=== PATIENT | female | born 1960 | race Caucasian/White ===

== ENCOUNTER → 2018-07-28 | Day surgery (SDC) | payer OTHER ==
[~2018-07-28] MED LIST: ABILIFY5 MG PO; ACETAMINOPHEN-1 EAC4; ADVAIR 100-501 EACH; BACLOFEN10 MG PO; CETIRIZINE HCL10 M1; CLONAZEPAM1 MG PO; COMBIVENT RESPIM4 GM IH; CYROHEPTADINE; ESTRADIOL1 MG PO; ETODOLAC500 M1; ETODOLAC500 MG; FENTANYL CITRATE/PF 100MCG/2 ML INJ ONE; FERROUS SULFAT324 MG; FUROSEMIDE40 MG PO; GABAPENTIN400 MG PO; HYOSCYAMINE SULFATE 0.5 MG/ML INJ ONE; LIDOCAINE HCL 2% LOCAL INJ 5 ML SDV VIAL INJ ONE; MIDAZOLAM HCL 2 MG/2 ML VIAL ONE; MIDODRINE HCL5 MG; POTASSIUM CHLO20 ME1; PRIMIDONE1 GM; PROAIR HFA INH8.5 GM; PROMETHAZINE HCL (IM) 25 MG/ML VIAL ONE; PROPOFOL IV EMULSION 10 MG/ML 50 ML VIAL ONE; SIMVASTATIN40 MG PO; ULTRAM50 MG PO; VESICARE5 MG PO; VITAMIN C1000 MG; [UNRECOGNIZED DRUG - OTHER]
--- OUTSIDE RECORDS SUMMARY | 2018-07-28 13:07 | XMS REPORT ---
Author Author [facility] [facility] Address Unknown Phone Unavailable Care Team Providers Care Experimental Psychologist Name Role Phone UNKNOWN, REFFERING PP Unavailable MICHAELA REED Unavailable Unavailable Payers Payer Name Policy Type Policy Number Effective Date Expiration Date Problems This patient has no known problems. Allergies, Adverse Reactions, Alerts Allergy Name Allergy Type Status Severity Reaction(s) Onset Date Inactive Date Treating Clinician Comments No Known Allergies DA Active U 2016-04-26 00:00:00 Medications This patient has no known medications. Encounters Start Date/Time End Date/Time Encounter Type Admission Type Attending [facility] Facility Care Department Encounter ID 2017-03-03 00:05:13 Inpatient [facility] [id number] 2017-03-02 00:01:40 Inpatient [facility] [id number] 2018-01-16 08:16:53 2018-01-16 08:16:53 Emergency [facility] [id number] 2018-01-16 08:00:33 2018-01-16 08:00:33 Emergency [facility] [id number] 2017-04-05 00:00:00 2017-04-05 00:00:00 Outpatient [facility] [id number] 2017-03-31 00:00:00 2017-03-31 00:00:00 Outpatient [facility] [id number] 2017-03-01 19:04:30 2017-03-01 19:04:30 Emergency [facility] [id number] 2017-03-01 18:25:35 2017-03-01 18:25:35 Emergency [facility] [id number] 2017-03-01 18:22:30 2017-03-01 18:22:30 Emergency [facility] [id number] 2017-03-01 17:13:30 2017-03-01 17:13:30 Inpatient [facility] [id number] 2017-01-09 23:01:23 2017-01-09 23:01:23 Emergency [facility] [id number] 2017-01-09 22:22:27 2017-01-09 22:22:27 Emergency [facility] [id number] 2016-11-16 15:35:29 2016-11-16 15:35:29 Emergency [facility] [id number] 2016-11-16 15:21:19 2016-11-16 15:21:19 Emergency [facility] [id number] 2016-11-16 14:09:36 2016-11-16 14:09:36 [facility] [id number] Results Test Description Test Time Test Comments Text Results Atomic Results Result Comments CBC with Differential 2016-12-06 07:55:00 WBC (test code=WBC) 22.3 K/cumm 4.4-10.5 RBC (test code=RBC) 2.88 M/cumm 3.75-5.20 Hemoglobin (test code=HGB) 8.8 gm/dL 12.2-14.8 Hematocrit (test code=HCT) 25.5 % 36.5-44.4 MCV (test code=MCV) 88.5 fL 80-100 MCH (test code=MCH) 30.6 pg 27.0-32.5 MCHC (test code=MCHC) 34.5 % 32.0-37.5 RDW (test code=RDW) 13.8 % 11.5-14.5 Platelet Count (test code=PLTCT) 579 K/cumm 140-440 MPV (test code=MPV) 9.5 fL Diff Method (test code=DIFFM) Manual Neutrophil (test code=NEUT) 90.0 % 36-70 Lymphocyte (test code=LYMPH) 6.0 % 12-44 Monocyte (test code=MONO) 4.0 % 0-11 RBC Morphology (test code=RBCMRPH) 1+ Anisocytosis 1+Hypochromia Polychromasia 1+ Ovalocytes 1+ Spherocytes1+ Tear Drops Platelet Est (test code=PLTEST) Increased Platelet on Smear Basic Metabolic [id number] 07:26:00* Test Item Value Reference Range Comments Sodium (test code=NA) 135 mmol/L 135-145 Potassium (test code=K) 3.8 mmol/L 3.5-5.1 Chloride (test code=CL) 102 mmol/L 98-105 Carbon Dioxide (test code=CO2) 23 mmol/L 22-29 Anion Gap (test code=AGAP) 10 mmol/L 7-16 Glucose (test code=GLU) 110 mg/dL 70-115 Blood Urea Nitrogen (test code=BUN) 20 mg/dL 6-20 Creatinine (test code=CREAT) 0.8 mg/dL 0.5-0.9 BUN/Creatinine Ratio (test code=BCRATIO) 25.0 Calcium (test code=CA) 9.3 mg/dL 8.3-10.5 Estimated GFR (test code=GFR) >60 mL/min/1.73m2 eGFR (estimated Glomerular Filtration Rate) is an estimated value,calculated from the patient's serum creatinine using the MDRD equation.It is NOT the patient's actual GFR. The eGFR provides a more clinicallyuseful measure of kidney disease than serum creatinine alone.This calculation takes sex and race into account, if the informationis provided. If the race is not provided, and the patient isAfrican-Japanese, multiply by 1.212. If sex is not provided, and thepatient is female, multiply by 0.742. Results for patients <18 years ofage have not been validated by the MDRD study and should be interpretedwith caution.eGFR Result Interpretation:eGFR > or=60 is in the Normal RangeeGFR < 60 may mean kidney diseaseeGFR < 15 may mean kidney failureRanges recommended by the National Kidney Foundat ion,http://nkdep.nih.gov Culture, Blood [id number] 06:32:00Specimen: BloodCollected: 11/30/2016 02:50 Status: Final Last Updated: 12/05/2016 06:32 (1) ER Bed ED6 Culture Result (Final) (Final) No Growth After 5 Days Culture, Blood Routine 2016-12-05 06:32:00Specimen: BloodCollected: 11/30/2016 02:50 Status: Final Last Updated: 12/05/2016 06:32 (1) ER Bed ED6 Culture Result (Final) (Final) No Growth After 5 Days Basic Metabolic [id number] 05:58:00* Test Item Value Reference Range Comments Sodium (test code=NA) 136 mmol/L 135-145 Potassium (test code=K) 3.6 mmol/L 3.5-5.1 Chloride (test code=CL) 102 mmol/L 98-105 Carbon Dioxide (test code=CO2) 21 mmol/L 22-29 Anion Gap (test code=AGAP) 13 mmol/L 7-16 Glucose (test code=GLU) 113 mg/dL 70-115 Blood Urea Nitrogen (test code=BUN) 16 mg/dL 6-20 Creatinine (test code=CREAT) 0.8 mg/dL 0.5-0.9 BUN/Creatinine Ratio (test code=BCRATIO) 20.0 Calcium (test code=CA) 9.4 mg/dL 8.3-10.5 Estimated GFR (test code=GFR) >60 mL/min/1.73m2 eGFR (estimated Glomerular Filtration Rate) is an estimated value,calculated from the patient's serum creatinine using the MDRD equation.It is NOT the patient's actual GFR. The eGFR provides a more clinicallyuseful measure of kidney disease than serum creatinine alone.This calculation takes sex and race into account, if the informationis provided. If the race is not provided, and the patient isAfrican-Japanese, multiply by 1.212. If sex is not provided, and thepatient is female, multiply by 0.742. Results for patients <18 years ofage have not been validated by the MDRD study and should be interpretedwith caution.eGFR Result Interpretation:eGFR > or=60 is in the Normal RangeeGFR < 60 may mean kidney diseaseeGFR < 15 may mean kidney failureRanges recommended by the National Kidney Foundat ion,http://nkdep.nih.gov CBC with [id number] 05:57:00* Test Item Value Reference Range Comments WBC (test code=WBC) 24.1 K/cumm 4.4-10.5 RBC (test code=RBC) 2.74 M/cumm 3.75-5.20 Hemoglobin (test code=HGB) 8.4 gm/dL 12.2-14.8 Hematocrit (test code=HCT) 23.7 % 36.5-44.4 MCV (test code=MCV) 86.5 fL 80-100 MCH (test code=MCH) 30.7 pg 27.0-32.5 MCHC (test code=MCHC) 35.4 % 32.0-37.5 RDW (test code=RDW) 13.5 % 11.5-14.5 Platelet Count (test code=PLTCT) 536 K/cumm 140-440 MPV (test code=MPV) 9.1 fL Diff Method (test code=DIFFM) Manual Neutrophil (test code=NEUT) 92.0 % 36-70 Bands (test code=BAND) 1.0 % 0-6 Lymphocyte (test code=LYMPH) 5.0 % 12-44 Monocyte (test code=MONO) 2.0 % 0-11 nRBC (test code=NRBC) 2 /100 WBC 0-0 RBC Morphology (test code=RBCMRPH) Not Indicated WBC Morphology (test code=WBCMRPH) Hypersegs Present Platelet Est (test code=PLTEST) Increased Platelet on Smear CBC with [id number] 07:26:00* Test Item Value Reference Range Comments WBC (test code=WBC) 21.8 K/cumm 4.4-10.5 RBC (test code=RBC) 2.84 M/cumm 3.75-5.20 Hemoglobin (test code=HGB) 8.6 gm/dL 12.2-14.8 Hematocrit (test code=HCT) 24.2 % 36.5-44.4 MCV (test code=MCV) 85.2 fL 80-100 MCH (test code=MCH) 30.3 pg 27.0-32.5 MCHC (test code=MCHC) 35.5 % 32.0-37.5 RDW (test code=RDW) 13.5 % 11.5-14.5 Platelet Count (test code=PLTCT) 516 K/cumm 140-440 MPV (test code=MPV) 9.6 fL Diff Method (test code=DIFFM) Manual Neutrophil (test code=NEUT) 89.0 % 36-70 Lymphocyte (test code=LYMPH) 2.0 % 12-44 Monocyte (test code=MONO) 6.0 % 0-11 Metamyelocyte (test code=METAMYE) 3.0 % 0-0 Neutro Abs (test code=ANEUT) 20.1 K/cumm 1.6-7.4 Lymph Abs (test code=ALYMPH) 0.7 K/cumm 0.5-4.6 Carbon Abs (test code=AMONO) 0.9 K/cumm 0.0-1.2 Eos Abs (test code=AEOS) 0.01 K/cumm 0.00-0.74 Baso Abs (test code=ABASO) 0.0 K/cumm 0.00-0.21 RBC Morphology (test code=RBCMRPH) Normal WBC Morphology (test code=WBCMRPH) Slight Toxic Granulation Platelet Est (test code=PLTEST) Increased Platelet on Smear Basic Metabolic [id number] 07:19:00* Test Item Value Reference Range Comments Sodium (test code=NA) 133 mmol/L 135-145 Potassium (test code=K) 3.8 mmol/L 3.5-5.1 Chloride (test code=CL) 101 mmol/L 98-105 Carbon Dioxide (test code=CO2) 20 mmol/L 22-29 Anion Gap (test code=AGAP) 12 mmol/L 7-16 Glucose (test code=GLU) 122 mg/dL 70-115 Blood Urea Nitrogen (test code=BUN) 9 mg/dL 6-20 Creatinine (test code=CREAT) 0.7 mg/dL 0.5-0.9 BUN/Creatinine Ratio (test code=BCRATIO) 12.9 Calcium (test code=CA) 9.1 mg/dL 8.3-10.5 Estimated GFR (test code=GFR) >60 mL/min/1.73m2 eGFR (estimated Glomerular Filtration Rate) is an estimated value,calculated from the patient's serum creatinine using the MDRD equation.It is NOT the patient's actual GFR. The eGFR provides a more clinicallyuseful measure of kidney disease than serum creatinine alone.This calculation takes sex and race into account, if the informationis provided. If the race is not provided, and the patient isAfrican-Japanese, multiply by 1.212. If sex is not provided, and thepatient is female, multiply by 0.742. Results for patients <18 years ofage have not been validated by the MDRD study and should be interpretedwith caution.eGFR Result Interpretation:eGFR > or=60 is in the Normal RangeeGFR < 60 may mean kidney diseaseeGFR < 15 may mean kidney failureRanges recommended by the National Kidney Foundat ion,http://nkdep.nih.gov CBC with [id number] 07:03:00* Test Item Value Reference Range Comments WBC (test code=WBC) 25.8 K/cumm 4.4-10.5 RBC (test code=RBC) 2.54 M/cumm 3.75-5.20 Hemoglobin (test code=HGB) 7.8 gm/dL 12.2-14.8 Hematocrit (test code=HCT) 21.4 % 36.5-44.4 MCV (test code=MCV) 84.3 fL 80-100 MCH (test code=MCH) 30.7 pg 27.0-32.5 MCHC (test code=MCHC) 36.4 % 32.0-37.5 RDW (test code=RDW) 13.3 % 11.5-14.5 Platelet Count (test code=PLTCT) 441 K/cumm 140-440 MPV (test code=MPV) 9.9 fL Diff Method (test code=DIFFM) Manual Neutrophil (test code=NEUT) 86.0 % 36-70 Bands (test code=BAND) 2.0 % 0-6 Lymphocyte (test code=LYMPH) 6.0 % 12-44 Monocyte (test code=MONO) 6.0 % 0-11 Neutro Abs (test code=ANEUT) 23.5 K/cumm 1.6-7.4 Lymph Abs (test code=ALYMPH) 0.6 K/cumm 0.5-4.6 Carbon Abs (test code=AMONO) 1.7 K/cumm 0.0-1.2 Eos Abs (test code=AEOS) 0.01 K/cumm 0.00-0.74 Baso Abs (test code=ABASO) 0.0 K/cumm 0.00-0.21 RBC Morphology (test code=RBCMRPH) Normal Platelet Est (test code=PLTEST) Increased Platelet on Smear Basic Metabolic [id number] 06:51:00* Test Item Value Reference Range Comments Sodium (test code=NA) 132 mmol/L 135-145 Potassium (test code=K) 3.1 mmol/L 3.5-5.1 Chloride (test code=CL) 103 mmol/L 98-105 Carbon Dioxide (test code=CO2) 18 mmol/L 22-29 Anion Gap (test code=AGAP) 11 mmol/L 7-16 Glucose (test code=GLU) 162 mg/dL 70-115 Blood Urea Nitrogen (test code=BUN) 10 mg/dL 6-20 Creatinine (test code=CREAT) 0.7 mg/dL 0.5-0.9 BUN/Creatinine Ratio (test code=BCRATIO) 14.3 Calcium (test code=CA) 8.9 mg/dL 8.3-10.5 Estimated GFR (test code=GFR) >60 mL/min/1.73m2 eGFR (estimated Glomerular Filtration Rate) is an estimated value,calculated from the patient's serum creatinine using the MDRD equation.It is NOT the patient's actual GFR. The eGFR provides a more clinicallyuseful measure of kidney disease than serum creatinine alone.This calculation takes sex and race into account, if the informationis provided. If the race is not provided, and the patient isAfrican-Japanese, multiply by 1.212. If sex is not provided, and thepatient is female, multiply by 0.742. Results for patients <18 years ofage have not been validated by the MDRD study and should be interpretedwith caution.eGFR Result Interpretation:eGFR > or=60 is in the Normal RangeeGFR < 60 may mean kidney diseaseeGFR < 15 may mean kidney failureRanges recommended by the National Kidney Foundat ion,http://nkdep.nih.gov CT-H PELVIS LTD W/O [id number] 13:54:16DICTATION LOCATION: [id number]: r/o ospeomyelitis COMPARISON: None.PROCEDURE: CT of the Pelvis was performed without intravenous contrast. Intravenous contrast: None.Oral contrast: positive contrast was administered.Sagittal and coronal reformats were performed.One or more of the following dose reduction techniques were used:Automated exposure control, adjustment of the mA and/or kV according topatient size, and/or utilization of iterative reconstruction technique. FIND INGS:BLADDER: Mildly distended with air and fluid. A Emdondson catheter ispresent.RE PRODUCTIVE ORGANS: UnremarkableLYMPH NODES: No pelvic lymphadenopathy.VISUALIZED PORTIONS:ABDOMINAL ORGANS: Cholelithiasis.BOWEL: Within normal limits. Hyperden sities within the appendix may beretained contrast agent or appendicoliths. No a ppendiceal dilatation orwall thickening. No periappendiceal inflammation to sugg est acuteappendicitis.PERITONEUM: Trace pelvic free fluid.VESSELS: Atherosclero tic calcification of the aortoiliac vessels.ABDOMINAL WALL: Within normal limits .BONES: Redemonstrated are right L2 and L3 transverse process fractures. Left L5 hemisacralization. No periosteal reaction or focal osseouserosion in the sacrum /coccyx to suggest osteomyelitis. IMPRESSION: No osseous abnormality in the sacr um/coccyx to suggest acuteosteomyelitis. Consider correlation with bone scan or MRI if there ishigh clinical suspicion.Age-indeterminate right L2 and L3 transv erse process fractures.Trace nonspecific pelvic free fluid.Cholelithiasis.CBC with [id number] 09:06:00* Test Item Value Reference Range Comments WBC (test code=WBC) 22.2 K/cumm 4.4-10.5 RBC (test code=RBC) 2.51 M/cumm 3.75-5.20 Hemoglobin (test code=HGB) 7.6 gm/dL 12.2-14.8 Hematocrit (test code=HCT) 21.2 % 36.5-44.4 MCV (test code=MCV) 84.5 fL 80-100 MCH (test code=MCH) 30.3 pg 27.0-32.5 MCHC (test code=MCHC) 35.8 % 32.0-37.5 RDW (test code=RDW) 13.1 % 11.5-14.5 Platelet Count (test code=PLTCT) 417 K/cumm 140-440 MPV (test code=MPV) 9.8 fL Diff Method (test code=DIFFM) Manual Neutrophil (test code=NEUT) 84.0 % 36-70 Bands (test code=BAND) 6.0 % 0-6 Lymphocyte (test code=LYMPH) 2.0 % 12-44 Monocyte (test code=MONO) 5.0 % 0-11 Metamyelocyte (test code=METAMYE) 3.0 % 0-0 RBC Morphology (test code=RBCMRPH) 1+ Anisocytosis 1+ Microcytosis 1+ Hypochromia 1+ Ovalocytes Platelet Est (test code=PLTEST) Large Platelets on Smear Basic Metabolic [id number] 08:13:00* Test Item Value Reference Range Comments Sodium (test code=NA) 136 mmol/L 135-145 Potassium (test code=K) 2.9 mmol/L 3.5-5.1 READ BACK LAB VALUESVERIFIED BY REPEAT TESTINGCALLED RESULTS TO RODRICK HAYS RN 12/02/16 @ 08:12 BY SO Chloride (test code=CL) 110 mmol/L 98-105 Carbon Dioxide (test code=CO2) 14 mmol/L 22-29 READ BACK LAB VALUESVERIFIED BY REPEAT TESTINGCALLED RESULTS TO RODRICK HAYS RN 12/02/16 @ 08: 12 BY SO Anion Gap (test code=AGAP) 12 mmol/L 7-16 Glucose (test code=GLU) 131 mg/dL 70-115 Blood Urea Nitrogen (test code=BUN) 14 mg/dL 6-20 Creatinine (test code=CREAT) 0.9 mg/dL 0.5-0.9 BUN/Creatinine Ratio (test code=BCRATIO) 15.6 Calcium (test code=CA) 8.9 mg/dL 8.3-10.5 Estimated GFR (test code=GFR) >60 mL/min/1.73m2 eGFR (estimated Glomerular Filtration Rate) is an estimated value,calculated from the patient's serum creatinine using the MDRD equation.It is NOT the patient's actual GFR. The eGFR provides a more clinicallyuseful measure of kidney disease than serum creatinine alone.This calculation takes sex and race into account, if the informationis provided. If the race is not provided, and the patient isAfrican-Japanese, multiply by 1.212. If sex is not provided, and thepatient is female, multiply by 0.742. Results for patients <18 years ofage have not been validated by the MDRD study and should be interpretedwith caution.eGFR Result Interpretation:eGFR > or=60 is in the Normal RangeeGFR < 60 may mean kidney diseaseeGFR < 15 may mean kidney failureRanges recommended by the National Kidney Foundat ion,http://nkdep.nih.gov Culture, [id number] 06:58:00Specimen: Urine, CathCollected: 11/30/2016 02:50 Status: Final Last Updated: 12/02/2016 06:58 (1) ER Bed ED6 Culture Result (Final) (Final) 12/01/16 No growth 24 hours 12/02/16 No growth 48 hours US-H PELVIC [id number] 12:38:25DICTATION LOCATION: [id number]: abd pain LMP: PostmenopausalCOMPARISON: None available.TECHNIQUE: Transabominal pelvic sonogram. FINDINGS:Suboptimal ev aluation secondary to overlying bowel.Uterus: 5.8 x 3.1 x 3.7 cm. Within normal limits.Endometrium: 3 mm. Within normal limits.Right ovary: Not visualized.Left ovary: Not visualized.Free fluid: None.Incidentally noted is a Edmondson catheter wi thin a mildly distended urinarybladder. IMPRESSION:1. Limited evaluation of the uterus is unremarkable. There is noendometrial thickening.2. Nonvisualization of the ovaries. Transvaginal examination can beperformed for further evaluation if clinically warranted.3. Incidentally noted is a Edmondson catheter within a mild ly distendedurinary bladder. Edmondson function should be clinically assessed. US-H ABD B-SCAN, [id number] 12:16:07DICTATION LOCATION: [id number]: ABD PAIN. COMPARISON: None available.TECHNIQUE: Sonography of the abdomen. Color and spectral Doppler of theportal vein was performed.FINDINGS:Liver: 17.7 cm. Within normal limits.Bile ducts: Normal caliber. Common hepatic duct measures 5 mm. Theportal vein is patent and demonstrates normal directional flow.Gallbladder: Gallbladder sludge and possible nonshadowing gravel stones.The gallbladder wall measures 3 mm. There is no pericholecystic fluid.The technologist reports a negative sonographic Mohan sign.Pancreas: Visualized portions are within normal limits. The distalpancreatic body and pancreatic tail are not visualized.Spleen: 9.1 cm. Grossly unremarkableRight kidney: 11.6 cm. No hydronephrosis.Left kidney: 10.2 cm. No hydronephrosis.Ascites: None.Aorta and IVC: Limited grayscale evaluation of the aorta and IVC areunremarkable. IMPRESSION: Gallbladder sludge and possible nonshadowing gravel stones. Wenonah lbladder wall thickening or pericholecystic fluid.CBC with Differential 2016-12-01 09:31:00* Test Item Value Reference Range Comments WBC (test code=WBC) 26.7 K/cumm 4.4-10.5 RBC (test code=RBC) 2.62 M/cumm 3.75-5.20 Hemoglobin (test code=HGB) 8.1 gm/dL 12.2-14.8 Hematocrit (test code=HCT) 22.3 % 36.5-44.4 MCV (test code=MCV) 85.1 fL 80-100 MCH (test code=MCH) 30.9 pg 27.0-32.5 MCHC (test code=MCHC) 36.3 % 32.0-37.5 RDW (test code=RDW) 13.4 % 11.5-14.5 Platelet Count (test code=PLTCT) 407 K/cumm 140-440 MPV (test code=MPV) 10.3 fL Diff Method (test code=DIFFM) Manual Neutrophil (test code=NEUT) 89.0 % 36-70 Bands (test code=BAND) 1.0 % 0-6 Lymphocyte (test code=LYMPH) 4.0 % 12-44 Monocyte (test code=MONO) 6.0 % 0-11 RBC Morphology (test code=RBCMRPH) 1+ Anisocytosis Platelet Est (test code=PLTEST) Adequate Platelets on Smear Basic Metabolic [id number] 08:57:00* Test Item Value Reference Range Comments Sodium (test code=NA) 137 mmol/L 135-145 Potassium (test code=K) 2.6 mmol/L 3.5-5.1 Verified by repeat testing. Lab value read back by ROGELIO Tao @ 08:55012/01/2016 joel Chloride (test code=CL) 111 mmol/L 98-105 Carbon Dioxide (test code=CO2) 13 mmol/L 22-29 Verified by repeat testing. Lab value read back by ROGELIO Tao @ 08:5508 joel Anion Gap (test code=AGAP) 13 mmol/L 7-16 Glucose (test code=GLU) 79 mg/dL 70-115 Blood Urea Nitrogen (test code=BUN) 31 mg/dL 6-20 Creatinine (test code=CREAT) 1.3 mg/dL 0.5-0.9 BUN/Creatinine Ratio (test code=BCRATIO) 23.8 Calcium (test code=CA) 8.7 mg/dL 8.3-10.5 Estimated GFR (test code=GFR) 45 mL/min/1.73m2 eGFR (estimated Glomerular Filtration Rate) is an estimated value,calculated from the patient's serum creatinine using the MDRD equation.It is NOT the patient's actual GFR. The eGFR provides a more clinicallyuseful measure of kidney disease than serum creatinine alone.This calculation takes sex and race into account, if the informationis provided. If the race is not provided, and the patient isAfrican-Japanese, multiply by 1.212. If sex is not provided, and thepatient is female, multiply by 0.742. Results for patients <18 years ofage have not been validated by the MDRD study and should be interpretedwith caution.eGFR Result Interpretation:eGFR > or=60 is in the Normal RangeeGFR < 60 may mean kidney diseaseeGFR < 15 may mean kidney failureRanges recommended by the National Kidney Foundat ion,http://nkdep.nih.gov [id number] 08:53:00* Test Item Value Reference Range Comments Phosphorus (test code=PO4) 3.0 mg/dL 2.70-4.50 Magnesium, [id number] 08:52:00* Test Item Value Reference Range Comments Magnesium (test code=MG) 1.7 mg/dL 1.7-2.5 CT-H ABDOMEN WO [id number] 08:30:01CT ABDOMEN AND PELVIS WITHOUT CONTRAST.CLINICAL HISTORY: Abdominal pain, cough, confusion COMPARISON: None available TECHNIQUE: Noncontrast images of the abdomen and pelvis were obtainedfrom the diaphragm to the pelvic floor. Coronal and sagittal reformatswere obtained. Oral contrast was not provided. One or more of thefollowing dose reduction techniques were used: Automated exposurecontrol, a djustment of the mA and/or kV according to patient size,and/or utilization of it erative reconstruction technique. FINDINGS:Subsegmental atelectasis and scatter ed groundglass opacities are seen inthe lung bases. No pleural effusion is pres ent. The heart size isnormal.Evaluation of the abdominal viscera is limited by the lack ofintravenous contrast. The unenhanced liver shows diffuse increasedat tenuation as compared to the spleen. This is a nonspecific finding. There are s tones or sludge in the gallbladder. Gallbladder wallthickening is not appreciat ed however ultrasound is more sensitive. Thepancreas, spleen, and adrenal gland s are unremarkable.Mild left renal pelviectasis is seen. The right kidney is un remarkable. No perinephric fat stranding or fluid collection is present. Theuri nary bladder is collapsed by Edmondson catheter.The bowel loops are fluid-filled but nondilated. A moderate amount ofretained stool is seen in the colon and rectum .The uterus and adnexa are unremarkable.There are fractures of the right L2 and L3 transverse processes. Theseare age indeterminate but possibly acute. There is partialsacralization of L5 on the left.IMPRESSION: 1. Cholelithiasis. If th ere is concern for acute cholecystitis,ultrasound follow-up would be recommended .2. Mild left renal pelviectasis.3. Age indeterminate fractures of the right L 2 and L3 transverseprocesses. Please correlate for timing and mechanism of any trauma.Location: [id number] 08:25:00* Test Item Value Reference Range Comments CK (test code=CK) 276 26-192 CK performed on Integra 400 CKMB (test code=CKMB) 5.7 ng/mL 0.0-4.3 CKMB% (test code=CKMBP) 2.1 % CK [id number] 08:25:00* Test Item Value Reference Range Comments CK (test code=CK) 276 U/L 26-192 Troponin [id number] 08:07:00* Test Item Value Reference Range Comments Troponin I (test code=TNI) <0.05 ng/mL 0.00-0.04 Values of <0.05 ng/mL are considered negative. Values 0.40 ng/mL are considered indicative of myocardial injury. Values 0.05 to 0.39 ng/mL are indeterminate. DAU9 W/O [id number] 19:09:00* Test Item Value Reference Range Comments Amphetamine (test code=AMPH) Negative Negative For diagnostic purposes only, positive results should always be assessedin conjunctionwith the patient's medical history,clinical examination and otherfindings.To fulfill legal requirements, a more specific alternate chemical methodmust be used inorder to obtain a Confirmed analytical result. GC/MS is the preferred confirmatory method. Barbiturates (test code=LATISHA) POSITIVE Negative Benzodiazepine (test code=JILL) Negative Negative Cocaine (test code=COCA) Negative Negative Methadone (test code=MTHD) Negative Negative Opiates (test code=OPIA) POSITIVE Negative PCP (test code=PCP) Negative Negative THC (test code=THC) POSITIVE Negative Tricyclic Antidrepessant (test code=TCA) Negative Negative CBC with [id number] 13:27:00* Test Item Value Reference Range Comments WBC (test code=WBC) 22.3 K/cumm 4.4-10.5 RBC (test code=RBC) 2.71 M/cumm 3.75-5.20 Hemoglobin (test code=HGB) 8.4 gm/dL 12.2-14.8 Hematocrit (test code=HCT) 23.1 % 36.5-44.4 MCV (test code=MCV) 85.2 fL 80-100 MCH (test code=MCH) 31.0 pg 27.0-32.5 MCHC (test code=MCHC) 36.4 % 32.0-37.5 RDW (test code=RDW) 13.1 % 11.5-14.5 Platelet Count (test code=PLTCT) 385 K/cumm 140-440 MPV (test code=MPV) 10.2 fL Diff Method (test code=DIFFM) Manual Neutrophil (test code=NEUT) 75.0 % 36-70 Bands (test code=BAND) 2.0 % 0-6 Lymphocyte (test code=LYMPH) 15.0 % 12-44 Monocyte (test code=MONO) 7.0 % 0-11 Basophil (test code=BASO) 1.0 % 0-2 RBC Morphology (test code=RBCMRPH) 1+ Anisocytosis 1+ Microcytosis Platelet Est (test code=PLTEST) Adequate Platelets on Smear Basic Metabolic [id number] 13:15:00* Test Item Value Reference Range Comments Sodium (test code=NA) 136 mmol/L 135-145 Potassium (test code=K) 3.8 mmol/L 3.5-5.1 Chloride (test code=CL) 110 mmol/L 98-105 Carbon Dioxide (test code=CO2) 14 mmol/L 22-29 READ BACK LAB VALUESVERIFIED BY REPEAT TESTINGCALLED RESULTS TO HARRIS HARTMAN RN, 11/30/2016 @ 13:14 BY SO Anion Gap (test code=AGAP) 12 mmol/L 7-16 Glucose (test code=GLU) 106 mg/dL 70-115 Blood Urea Nitrogen (test code=BUN) 43 mg/dL 6-20 Creatinine (test code=CREAT) 2.5 mg/dL 0.5-0.9 BUN/Creatinine Ratio (test code=BCRATIO) 17.2 Calcium (test code=CA) 8.4 mg/dL 8.3-10.5 Estimated GFR (test code=GFR) 21 mL/min/1.73m2 eGFR (estimated Glomerular Filtration Rate) is an estimated value,calculated from the patient's serum creatinine using the MDRD equation.It is NOT the patient's actual GFR. The eGFR provides a more clinicallyuseful measure of kidney disease than serum creatinine alone.This calculation takes sex and race into account, if the informationis provided. If the race is not provided, and the patient isAfrican-Japanese, multiply by 1.212. If sex is not provided, and thepatient is female, multiply by 0.742. Results for patients <18 years ofage have not been validated by the MDRD study and should be interpretedwith caution.eGFR Result Interpretation:eGFR > or=60 is in the Normal RangeeGFR < 60 may mean kidney diseaseeGFR < 15 may mean kidney failureRanges recommended by the National Kidney Foundat ion,http://nkdep.nih.gov CK [id number] 13:09:00* Test Item Value Reference Range Comments CK (test code=CK) 542 U/L 26-192 CK [id number] 13:09:00* Test Item Value Reference Range Comments CK (test code=CK) 542 26-192 CK performed on Integra 400 CKMB (test code=CKMB) 12.2 ng/mL 0.0-4.3 CKMB% (test code=CKMBP) 2.3 % Troponin [id number] 13:05:00* Test Item Value Reference Range Comments Troponin I (test code=TNI) <0.05 ng/mL 0.00-0.04 Values of <0.05 ng/mL are considered negative. Values 0.40 ng/mL are considered indicative of myocardial injury. Values 0.05 to 0.39 ng/mL are indeterminate. Urinalysis [id number] 03:10:00* Test Item Value Reference Range Comments Color (test code=COLOR) Light yellow Yellow,Straw,Pl yellow Clarity (test code=CLAR) Clear Clear Specific Deputy (test code=SPGR) 1.015 1.001-1.035 pH (test code=PH) 6.0 5.0-9.0 Ketone (test code=KET) Negative Negative Glucose (test code=GLUCUR) Negative Negative Protein (test code=PROT) 30 Negative Bilirubin (test code=BILI) Large Negative Ictotest (test code=ICTOTEST) Confirmed Positive Negative Occult Blood (test code=UDOB) Moderate Negative Urobilinogen (test code=UROB) 0.2 0.2-1.0 Nitrite (test code=NIT) Negative Negative Leuk Esterase (test code=LEUK) Negative Negative The value Moderate originally released by [facility] on 11/30/2016 03:06 waschanged to Negative by [facility] on 11/30/2016 03:10 Micros Exam (test code=MEXAM) Indicated Epithelial Cells (test code=EPI) 0-2 /HPF 0-30 WBC, Urine (test code=UWBC) 3-5 /LPF 0-5 RBC, Urine (test code=URBC) 3-5 /LPF 0-5 Amorph Deposit (test code=AMORD) 1+ /HPF Bacteria (test code=BACT) 1+ /LPF XR-H CHEST 1 [id number] 02:37:18AFTER HOURS SERVICE ON: 11/30/2016 2:37 AMAP Portable ChestLocation Code [id number]: CoughFINDINGS: There are no infiltrates. There are no pleural effusions. There is nopneumothorax. Cardiac silhouette and mediastinum appear within normallimits. IMPRESSION: No active intrathoracic findings. Comprehensive Metabolic [id number] 02:04:00* Test Item Value Reference Range Comments Sodium (test code=NA) 134 mmol/L 135-145 Potassium (test code=K) 2.7 mmol/L 3.5-5.1 VERIFIED BY REPEAT TESTING READ BACK LAB VALUES to ROGELIO Gray/ER Chloride (test code=CL) 103 mmol/L 98-105 Carbon Dioxide (test code=CO2) 14 mmol/L 22-29 VERIFIED BY REPEAT TESTING READ BACK LAB VALUES to ROGELIO Gray/ER Anion Gap (test code=AGAP) 17 mmol/L 7-16 Glucose (test code=GLU) 107 mg/dL 70-115 Blood Urea Nitrogen (test code=BUN) 48 mg/dL 6-20 Creatinine (test code=CREAT) 3.4 mg/dL 0.5-0.9 BUN/Creatinine Ratio (test code=BCRATIO) 14.1 Calcium (test code=CA) 9.5 mg/dL 8.3-10.5 Prot Total (test code=TP) 6.6 g/dL 6.4-8.3 Albumin (test code=ALB) 3.9 g/dL 3.5-5.2 A/G Ratio (test code=AGRATIO) 1.4 Ratio Globulin (test code=GLOB) 2.7 2.9-3.1 Bili Total (test code=TBIL) 0.8 mg/dL 0.1-0.9 Alk Phos (test code=APHOS) 91 U/L 35-104 AST (test code=AST) 36 U/L 1-32 ALT (test code=ALT) 14 U/L 1-33 Estimated GFR (test code=GFR) 15 mL/min/1.73m2 eGFR (estimated Glomerular Filtration Rate) is an estimated value,calculated from the patient's serum creatinine using the MDRD equation.It is NOT the patient's actual GFR. The eGFR provides a more clinicallyuseful measure of kidney disease than serum creatinine alone.This calculation takes sex and race into account, if the informationis provided. If the race is not provided, and the patient isAfrican-Japanese, multiply by 1.212. If sex is not provided, and thepatient is female, multiply by 0.742. Results for patients <18 years ofage have not been validated by the MDRD study and should be interpretedwith caution.eGFR Result Interpretation:eGFR > or=60 is in the Normal RangeeGFR < 60 may mean kidney diseaseeGFR < 15 may mean kidney failureRanges recommended by the National Kidney Foundat ion,http://nkdep.nih.gov CBC with [id number] 02:00:00* Test Item Value Reference Range Comments WBC (test code=WBC) 22.9 K/cumm 4.4-10.5 RBC (test code=RBC) 3.21 M/cumm 3.75-5.20 Hemoglobin (test code=HGB) 9.9 gm/dL 12.2-14.8 Hematocrit (test code=HCT) 27.0 % 36.5-44.4 MCV (test code=MCV) 84.1 fL 80-100 MCH (test code=MCH) 30.8 pg 27.0-32.5 MCHC (test code=MCHC) 36.7 % 32.0-37.5 RDW (test code=RDW) 13.1 % 11.5-14.5 Platelet Count (test code=PLTCT) 473 K/cumm 140-440 MPV (test code=MPV) 9.8 fL Diff Method (test code=DIFFM) Manual Neutrophil (test code=NEUT) 92.0 % 36-70 Bands (test code=BAND) 2.0 % 0-6 Lymphocyte (test code=LYMPH) 2.0 % 12-44 Monocyte (test code=MONO) 4.0 % 0-11 RBC Morphology (test code=RBCMRPH) 1+ Anisocytosis 1+ Poikilocytosis Platelet Morphology (test code=PLTMRPH) Platelet Clumping seen Platelet Est (test code=PLTEST) Large Platelets on Smear CK [id number] 02:00:00* Test Item Value Reference Range Comments CK (test code=CK) 989 26-192 CK performed on Integra 400 CKMB (test code=CKMB) 19.8 ng/mL 0.0-4.3 CKMB% (test code=CKMBP) 2.0 % Alcohol/Ethanol, [id number] 02:00:00* Test Item Value Reference Range Comments Alcohol, Ethyl (test code=ETOH) 0.00 g/dL 0.00-0.01 Intoxicated 0.080 g/dL or more CK [id number] 02:00:00* Test Item Value Reference Range Comments CK (test code=CK) 989 U/L 26-192 [id number] 02:00:00* Test Item Value Reference Range Comments Lipase (test code=LIP) 20 U/L 13-60 Partial Thromboplastin [id number] 01:55:00* Test Item Value Reference Range Comments aPTT (test code=PTT) 24.7 seconds 22.4-33.2 Prothrombin [id number] 01:55:00* Test Item Value Reference Range Comments PT (test code=PT) 10.8 seconds 9.6-13.1 INR (test code=INR) 1.08 Ratio 0.6-1.2 Troponin [id number] 01:55:00* Test Item Value Reference Range Comments Troponin I (test code=TNI) <0.05 ng/mL 0.00-0.04 Values of <0.05 ng/mL are considered negative. Values 0.40 ng/mL are considered indicative of myocardial injury. Values 0.05 to 0.39 ng/mL are indeterminate. XR-H FOOT [id number] 01:28:12LOCATION: S 17HISTORY: 56-year-old female with left foot pain.COMMENT: After-hours service at 1:28 a.m.Frontal and lateral radiographs of the left foot were examined.Postsurgical changes are seen with multiple metallic screws placed inthe mid foot, compatible with arthrodeses between the first throughthird metatarsals and the associated carpal bones.No acute bony injuries are present. The soft tissues are unremarkable.Hallux valgus changes are seen in the great toe.IMPRESSION:There is no radiographic evidence of acute injury in this patient's leftfoot. Postsurgical changes are present. Please see above comments fordetails.XR-H FOOT [id number] 01:09:26 LOCATION: S 17HISTORY: 56-year-old female presents with right foot pain.COMMENT: After-hours service at 1:09 a.m.Frontal and lateral radiographs of this patient 's right foot wereobtained at the bedside at 12:59 a.m.The skeleton is intact. T he joint spaces are unremarkable. The softtissues are unremarkable.IMPRESSION:Un remarkable radiographic examination of this patient's right foot.CT-H HEAD OR BRAIN WO [id number] 00:33:21AFTER HOURS SERVICE ON: 11/30/2016 12:33 [facility] Scan of the Brain Without ContrastLocation Code [id number]: ConfusedTechnique: Scans were performed on a helical scanner pre IV contrastonly. The study is limited secondary to lack of intravenous contrast,particularly for evaluation of masses. CT images were performed vhiupp12 hours at arrival to the facility. One or more of the following dose reduction techniques were used:Automated exposure control, adjustment of the mA and/or kV according topatient size, and/or utilization of iterative reconstruction technique.Findings: There is no hydrocephalus. Basal cisterns are patent. There is nointracranial hyperdense hemorrhage. There is no midline shift or masseffect. No effacement of the cadet- white matter junction to indicateacute infarction. There are chronic ischemic white matter changes andbilateral frontal lobe atrophy. Small lacunar infarcts noted in the leftbasal ganglia and right caudate nucleus.Impression:1. No acute intracranial CT findings.2. Senescent changes.3. Small old lacunar infarcts in the left basal ganglia and rightcaudate nucleus.
--- OUTSIDE RECORDS SUMMARY | 2018-07-28 13:07 | XMS REPORT | Clinical Summary ---
Author Author [facility] Organization [facility] Address Unknown Phone Unavailable Care Team Providers Care Resident Care Assistant Name Role Phone PCP Unavailable Allergies Comments Active Allergy Reactions Severity Noted Date Codeine Itching 06/30/2006 Medications End Date Status Medication Sig Dispensed Refills Start Date Active SEROQUEL 25 MG TAB take 1 tablet 0 (25mg) by 5 oral route 2 times per day Active CYMBALTA 30 MG CAP 3 tabs daily 0 5 Active ALBUTEROL (BULK) MISC 2 times daily 0 5 Active BUSPIRONE 15 MG take 2 tablet 28 0 TABIndications: (15 mg) by 9 Medication refill oral route 2 times per day as needed for anxiety SUPERVISING MD MAXIMO CASTELLANOS Active Problems Problem Noted Date Fall 01/16/2018 Scalp laceration 01/16/2018 Bipolar disorder 10/03/2017 Polysubstance abuse 10/03/2017 Bilateral leg edema 01/09/2017 SOB (shortness of breath) 11/16/2016 Essential hypertension, benign Bradycardia Resolved Problems Problem Noted Date Resolved Date Bipolar Disorder 10/03/2017 Encounters Care Team Description Date Type Specialty Kavya Smalls DO Fall, initial encounter (Primary Dx); Laceration of scalp, initial encounter 01/16/2018 Emergency Emergency Medicine Ivana Swenson MD Laceration of scalp, initial encounter (Primary Dx); Visit for wound check 10/03/2017 Office Visit Family Practice Cb Tello MD Visit for wound check (Primary Dx) 10/02/2017 Emergency Emergency Medicine Mckinley Rodriguez MD Laceration of scalp with delay in treatment, initial encounter (Primary Dx) 09/25/2017 Emergency Emergency Medicine after 07/27/2017 Immunizations Name Dates Previously Given Next Due Tdap (Tetanus Toxoid, 01/16/2018, 09/25/2017 Reduced Diphtheria Toxoid And Acellular Pertussis, Absorbed) Family History Medical History Relation Name Comments Cancer Father THROAT Stroke Maternal Grandmother Arthritis Mother Cancer Paternal UNKNOWN Grandmother Relation Name Status Comments Father CANCER THROAT (Age 56) Maternal Grandmother Mother Alive Paternal Grandmother Son Alive Social History Date Tobacco Use Types Packs/Day Years Used Current Every Day Smoker Cigarettes 0.5 20 Smokeless Tobacco: Current User Alcohol Use Drinks/Week oz/Week Comments No Sex Assigned at Date Recorded Not on file Industry Job Start Date Occupation Not on file Not on file Not on file Travel End Travel History Travel Start No recent travel history available. Last Filed Vital Signs Time Taken Vital Sign Reading 01/16/2018 9:00 AM CDT Blood Pressure 132/82 01/16/2018 9:00 AM CDT Pulse 67 01/16/2018 8:10 AM CDT Temperature 36.7 C (98 F) 01/16/2018 9:00 AM CDT Respiratory Rate 17 01/16/2018 9:00 AM CDT Oxygen Saturation 99% - Inhaled Oxygen - Concentration 10/03/2017 3:52 PM CDT Weight 57.6 kg (127 lb) 10/03/2017 3:52 PM CDT Height 157.5 cm (5' 2") 10/03/2017 3:52 PM CDT Body Mass Index 23.23 Plan of Treatment Health Maintenance Due Date Last Done Comments Cervical Cancer Scrn (3 06/22/1983 Yrs) Breast Cancer Scrn 07/01/2007 06/30/2006 (Yearly) Colorectal Cancer Scrn 2012 Annual (FIT/FOBT) Age 50 to 75 IMM Influenza Seasonal 01/16/2019 Oct to June (>/=19 yrs) Procedures Comments Procedure Name Priority Date/Time Associated Diagnosis CT C-SPINE W/O CONTRAST STAT 01/16/2018 Fall, initial encounter 8:[address] HEAD W/O CONTRAST STAT 01/16/2018fall, initial encounter 8:40 AM CDT LACERATION REPAIR Routine 01/16/2018 Laceration of scalp, 8:16 AM CDT initial encounter SUTURE REMOVAL Routine 10/02/2017 2:55 PM CDT LACERATION REPAIR Routine 09/25/2017 Laceration of scalp with 6:16 PM CDT delay in treatment, initial encounter after 07/27/2017 Results * CT C-SPINE W/O CONTRAST (01/16/2018 8:40 AM CDT) Impressions Performed At IMPRESSION: [facility] 1. No acute abnormality of the cervical spine. 2. Lower cervical spondylosis. 3. Other incidental findings include air filled patulous esophagus, pulmonary emphysema and atherosclerotic calcific burden of the carotid bifurcations. Signed By: Ritu Lockhart MD, 01/16/2018 8:55 AM Narrative Performed At CERVICAL SPINE CT WITHOUT CONTRAST [facility] DATE: 01/16/2018 8:40 AM INDICATION:fall, LOC, neck pain COMPARISON: None TECHNIQUE:Axially oriented 2mm thick images were obtained through the entire cervical spine, without contrast.Sagittal and coronal reformations are also provided. Total DLP: 393 mGY-cm FINDINGS: No fracture, malalignment, or dislocation identified. Craniocervical and atlantoaxial joints are well aligned. The vertebral body heights are maintained. The facet joints are normally apposed without perching or encroachment. The interspinous distance is preserved. Degenerative disc disease is predominant C5-C7 with intervertebral disc space narrowing, endplate sclerosis and marginal osteophyte. Additionally disco osteophytic bulges are seen at C5-C6 and C6-C7 narrowing the spinal canal at these levels. Uncovertebral hypertrophy is present at C6 and C7 mildly impinging the corresponding neural foramina. There is degenerative facet joint osteoarthrosis at the left C3-C4 and C4-C5. Carotid bulb calcifications are present. No soft tissue acute abnormality is seen. No paravertebral soft tissue swelling or hematoma is identified. The visualized lung apices demonstrate mild scarring and emphysematous changes. There is no apical pneumothorax. The esophagus is patulous. Procedure Note Interface, Rad/Mammog In - 01/16/2018 9:01 AM CDT CERVICAL SPINE CT WITHOUT CONTRAST DATE: 01/16/2018 8:40 AM INDICATION: fall, LOC, neck pain COMPARISON: None TECHNIQUE: Axially oriented 2mm thick images were obtained through the entire cervical spine, without contrast. Sagittal and coronal reformations are also provided. Total DLP: 393 mGY-cm FINDINGS: No fracture, malalignment, or dislocation identified. Craniocervical and atlantoaxial joints are well aligned. The vertebral body heights are maintained. The facet joints are normally apposed without perching or encroachment. The interspinous distance is preserved. Degenerative disc disease is predominant C5-C7 with intervertebral disc space narrowing, endplate sclerosis and marginal osteophyte. Additionally disco osteophytic bulges are seen at C5-C6 and C6-C7 narrowing the spinal canal at these levels. Uncovertebral hypertrophy is present at C6 and C7 mildly impinging the corresponding neural foramina. There is degenerative facet joint osteoarthrosis at the left C3-C4 and C4-C5. Carotid bulb calcifications are present. No soft tissue acute abnormality is seen. No paravertebral soft tissue swelling or hematoma is identified. The visualized lung apices demonstrate mild scarring and emphysematous changes. There is no apical pneumothorax. The esophagus is patulous. IMPRESSION IMPRESSION: 1. No acute abnormality of the cervical spine. 2. Lower cervical spondylosis. 3. Other incidental findings include air filled patulous esophagus, pulmonary emphysema and atherosclerotic calcific burden of the carotid bifurcations. Signed By: Ritu Lockhart MD, 01/16/2018 8:55 AM Performing Organization Address City/State/Zipcode Phone Number [facility] * CT HEAD W/O CONTRAST (01/16/2018 8:40 AM CDT) Impressions Performed At IMPRESSION: [facility] No acute intracranial abnormality. No hemorrhage or skull fracture shown This [facility] radiology report is a preliminary resident dictation until finalized by an attending.Changes to this preliminary report may occur in an additional preliminary or finalized version. Dictated By: Topher Gayle MD, 01/16/2018 11:40 AM I have reviewed the study and agree with the findings in this report. Signed By: Salinas Perez MD, 01/16/2018 11:49 AM Narrative Performed At EXAM: CT BRAIN WITHOUT CONTRAST [facility] DATE: 01/16/2018 INDICATION: Fall, loss of consciousness, laceration; fall , initial encounter COMPARISON: CT head without contrast dated 03/01/2017 TECHNIQUE: Axial CT images of the brain are acquired without contrast. Sagittal and coronal reformats. IV contrast: None DLP: 864.7 mGy-cm FINDINGS: There is no hemorrhage or other brain injury. No edema, mass lesion, or extra-axial collection is shown. Old lacunar infarct in the right caudate head is unchanged. A low-attenuation focus adjacent to the left anterior commissure likely represents a dilated Virchow-Nick space. The ventricles and basal cisterns are normal. There is no fracture of the skull, skull base, or visible facial bones. There is minimal swelling in the right parietal scalp. No fracture of the subjacent calvarium is evident. The skull base is intact. There is no effusion in the mastoid air cells or visible paranasal sinuses. Postsurgical changes, status post post ORIF of the right mandible, are partially visualized. Procedure Note Interface, Rad/Mammog In - 01/16/2018 11:54 AM CDT EXAM: CT BRAIN WITHOUT CONTRAST DATE: 01/16/2018 INDICATION: Fall, loss of consciousness, laceration; fall , initial encounter COMPARISON: CT head without contrast dated 03/01/2017 TECHNIQUE: Axial CT images of the brain are acquired without contrast. Sagittal and coronal reformats. IV contrast: None DLP: 864.7 mGy-cm FINDINGS: There is no hemorrhage or other brain injury. No edema, mass lesion, or extra-axial collection is shown. Old lacunar infarct in the right caudate head is unchanged. A low-attenuation focus adjacent to the left anterior commissure likely represents a dilated Virchow-Nick space. The ventricles and basal cisterns are normal. There is no fracture of the skull, skull base, or visible facial bones. There is minimal swelling in the right parietal scalp. No fracture of the subjacent calvarium is evident. The skull base is intact. There is no effusion in the mastoid air cells or visible paranasal sinuses. Postsurgical changes, status post post ORIF of the right mandible, are partially visualized. IMPRESSION IMPRESSION: No acute intracranial abnormality. No hemorrhage or skull fracture shown This [facility] radiology report is a preliminary resident dictation until finalized by an attending. Changes to this preliminary report may occur in an additional preliminary or finalized version. Dictated By: Topher Gayle MD, 01/16/2018 11:40 AM I have reviewed the study and agree with the findings in this report. Signed By: Salinas Perez MD, 01/16/2018 11:49 AM Performing Organization Address City/State/Zipcode Phone Number [facility] * LACERATION REPAIR (01/16/2018 8:16 AM CDT) Only the most recent of 2 results within the time period is included. Narrative Performed At Zuleima Gonzales ResidentDO 01/16/20189:46 AM Laceration Repair Date/Time: 01/16/2018 9:45 AM Performed by: ZULEIMA GONZALES Authorized by: KAVYA SMALLS Consent: Consent obtained:Verbal Consent given by:Patient Risks discussed:Infection, pain, retained foreign body, need for additional repair and poor wound healing Alternatives discussed:No treatment Anesthesia (see MAR for exact dosages): Anesthesia method:None Laceration details: Location:Scalp Scalp location:R parietal Length (cm):1.5 Depth (mm):0.5 Repair type: Repair type:Simple Exploration: Wound exploration: wound explored through full range of motion and entire depth of wound probed and visualized Wound extent: fascia violated Wound extent: no foreign body and no underlying fracture Contaminated: no Treatment: Area cleansed with:Saline Amount of cleaning:Standard Irrigation solution:Sterile saline Irrigation volume:300 cc Irrigation method:Syringe Skin repair: Repair method:[place] Approximation: Approximation:Close Vermilion border: well-aligned Post-procedure details: Dressing:Open (no dressing) Patient tolerance of procedure:Tolerated well, no immediate complications * SUTURE REMOVAL (10/02/2017 2:55 PM CDT) Narrative Performed At Radha Galloway NP 10/02/20173:00 PM Suture Removal Date/Time: 10/02/2017 2:59 PM Performed by: RADHA GALLOWAY Authorized by: RADHA GALLOWAY Consent: Consent obtained:Verbal Consent given by:Patient Risks discussed:Bleeding, pain and wound separation Alternatives discussed:No treatment and delayed treatment Location: Location:Head/neck Head/neck location:Scalp Procedure details: Wound appearance:No signs of infection Number of lorena removed:2 Post-procedure details: Post-removal:No dressing applied Patient tolerance of procedure:Tolerated well, no immediate complications after 07/27/2017 Insurance Type Payer Benefit Subscriber ID Effective Phone Address Plan / Dates Group [facility] xxxxxxxxx 2015-P [phone] [address] [facility] [id number] [place] [address] Advance Directives For more information, please contact: [address] [address] Date Inactivated Comments Code Status Date Activated 03/03/2017 1:30 PM Full Code 03/01/2017 9:56 PM
[2018-07-28 17:35] VITALS: BP 129/73
--- NOTE | 2018-07-29 00:05 | Operative Report ---
DATE OF PROCEDURE: 07/28/2018 SURGEON: Taye Dunham MD PROCEDURE: Colonoscopy with polypectomy. INDICATIONS FOR COLONOSCOPY: Colorectal cancer screening. MEDICATIONS: The patient was done under MAC, please see anesthesiologist's note. PROCEDURE IN DETAIL: With the patient in left lateral decubitus position, flexible fiberoptic Olympus colonoscope was inserted into the rectum with ease and advanced all the way to the cecum. It was then withdrawn slowly. Mucosa overlying the cecum, ascending colon, transverse and descending as well as the sigmoid colon other than for diverticular disease grossly were unremarkable. A minute polyp was hot biopsied from the sigmoid colon. There was a large polypoid mass approximately 2.2 cm in size was noted in the proximal rectum and that was partially resected per snare electrocautery and was hemoclipped x2. The scope was then retroflexed into the distal rectum and the area around the dentate line grossly appeared to be within normal limits. The scope was then straightened out, it was subsequently withdrawn. The patient tolerated the procedure well. IMPRESSION: 1. Diverticulosis. 2. Sigmoid colon polyp, hot biopsied. 3. Rectal polypoid mass, partially resected per snare electrocautery and hemoclipped x2. PLAN: Followup histology. The resected tissue turns out to be benign, then a followup colonoscopy in 4 to 6 weeks is in order to attempt to remove any residual polypoid tissue. Taye Dunham MD [facility] [place]/MODL /[id number] cc: Joey Farooq MD
== END | disposition home or self-care (01) ==
LOC: OR 13:04
PROVIDERS: ATTEND Internal Medicine Gastroenterology
DX: Z12.11 Encounter for screening for malignant neoplasm of colon (principal); D12.8 Benign neoplasm of rectum; K63.5 Polyp of colon; K57.30 Diverticulosis of large intestine without perforation or abscess without bleeding; K62.89 Other specified diseases of anus and rectum; I10 Essential (primary) hypertension; J44.9 Chronic obstructive pulmonary disease, unspecified; E78.5 Hyperlipidemia, unspecified; I95.9 Hypotension, unspecified; M41.9 Scoliosis, unspecified; F20.9 Schizophrenia, unspecified; F31.9 Bipolar disorder, unspecified; Z71.6 Tobacco abuse counseling; Z01.810 Encounter for preprocedural cardiovascular examination; Z79.82 Long term (current) use of aspirin; Z80.0 Family history of malignant neoplasm of digestive organs; Z86.73 Personal history of transient ischemic attack (TIA), and cerebral infarction without residual deficits
CPT/HCPCS: 45384; 45385; 93005; J1980; J2001; J2250; J2550; J2704; 44391

== ENCOUNTER → 2018-10-18 | Day surgery (SDC) | payer OTHER ==
[~2018-10-18] MED LIST changes: +EPHEDRINE SULFATE INJ 50 MG/10 ML SYR ONE; +HYOSCYAMINE 0.125 MG TAB ONE; -HYOSCYAMINE SULFATE 0.5 MG/ML INJ ONE; -LIDOCAINE HCL 2% LOCAL INJ 5 ML SDV VIAL INJ ONE; -MIDAZOLAM HCL 2 MG/2 ML VIAL ONE; +PRIMIDONE1 GM PO; -PROMETHAZINE HCL (IM) 25 MG/ML VIAL ONE; +TYLENOL #4 PO
--- OUTSIDE RECORDS SUMMARY | 2018-10-18 07:34 | XMS REPORT | Clinical Summary ---
Author Author [facility] Organization [facility] Address Unknown Phone Unavailable Care Team Providers Care Engine Designer Name Role Phone PCP Unavailable Allergies Comments [...] of breath) 11/16/2016 Essential hypertension, benign Bradycardia Encounters Care Team Description Date Type Specialty Kavya Smalls DO Fall, initial encounter (Primary Dx); Laceration of scalp, initial encounter 01/16/2018 Emergency Emergency Medicine after 10/17/2017 Immunizations Name Administration Dates Next Due Tdap (Tetanus Toxoid, 01/16/2018, 09/25/2017 [...] Cigarettes 0.5 20 Smokeless Tobacco: Current User Drinks/Week oz/Week Comments Alcohol Use No Sex Assigned at Date Recorded Not on file Industry Job Start Date Occupation Not on file Not on file Not on file Travel End Travel History Travel Start No recent travel history available. Last Filed Vital Signs Reading Time Taken Comments Vital Sign 132/82 01/16/2018 9:00 AM CDT Blood Pressure 67 01/16/2018 9:00 AM CDT Pulse 36.7 C (98 F) 01/16/2018 8:10 AM CDT Temperature 17 01/16/2018 9:00 AM CDT Respiratory Rate 99% 01/16/2018 9:00 AM CDT Oxygen Saturation - - Inhaled Oxygen Concentration - - Weight - - Height - - Body Mass Index Plan of Treatment Health Maintenance Due Date Last Done Comments Cervical Cancer Scrn (3 06/22/1983 Yrs) Breast Cancer Scrn 07/01/2007 06/30/2006 (Yearly) Colorectal Cancer Scrn 2012 Annual (FIT/FOBT) Age 50 to 75 IMM Influenza Seasonal 01/16/2019Jan to June (>/=19 yrs) Procedures Comments Procedure Name Priority Date/Time Associated Diagnosis CT C-SPINE W/O CONTRAST STAT 01/16/2018 Fall, initial encounter 8:[address] HEAD W/O CONTRAST STAT 01/16/2018 Fall, initial encounter 8:40 AM CDT LACERATION REPAIR Routine 01/16/2018 Laceration of scalp, 8:16 AM CDT initial encounter after 10/17/2017 Results * CT C-SPINE W/O CONTRAST (01/16/2018 8:40 AM CDT) Specimen Impressions Performed At IMPRESSION: [facility] 1. No acute abnormality of the cervical spine. 2. Lower cervical spondylosis. 3. Other incidental findings include air filled patulous esophagus, pulmonary emphysema and atherosclerotic calcific burden of the carotid bifurcations. Signed By: Ritu Lockhart MD, 01/16/2018 8:55 AM Narrative Performed At CERVICAL SPINE CT WITHOUT CONTRAST [facility] DATE: 01/16/2018 8:40 AM INDICATION:fall, LOC, neck [...] Organization Address City/State/Zipcode Phone Number SMS * CT HEAD W/O CONTRAST (01/16/2018 8:40 AM CDT) Specimen Impressions Performed At IMPRESSION: [facility] No acute intracranial abnormality. No hemorrhage or skull fracture shown This [facility] radiology report is a preliminary resident dictation until finalized by an attending.Changes to this preliminary report may occur in an additional preliminary or finalized version. Dictated By: Topher Gayle MD, 01/16/2018 11:40 AM I have reviewed the study and agree with the findings in this report. Signed By: Salinas Perez MD, 01/16/2018 11:49 AM Narrative Performed At EXAM: CT BRAIN WITHOUT CONTRAST [facility] DATE: 01/16/2018 INDICATION: Fall, loss of consciousness, [...] * LACERATION REPAIR (01/16/2018 8:16 AM CDT) Narrative Performed At Karel Rojas ResidentDO 01/16/20189:46 AM Laceration Repair Date/Time: 01/16/2018 9:45 AM Performed by: KAREL ROJAS Authorized by: KAVYA SMALLS Consent: Consent obtained:Verbal [...] volume:300 cc Irrigation method:Syringe Skin repair: Repair method:[place] Approximation: Approximation:Close Vermilion border: well-aligned Post-procedure details: Dressing:Open (no dressing) Patient tolerance of procedure:Tolerated well, no immediate complications after 10/17/2017 Insurance Type Payer Benefit Subscriber ID Effective Phone Address Plan / Dates Group [facility] xxxxxxxxx 2015-P [phone] [address] [facility] [id number] [place] [address] Advance Directives Date Inactivated Comments Code Status Date Activated 03/03/2017 1:30 PM Full Code 03/01/2017 9:56 PM
[2018-10-18 10:25] VITALS: BP 129/81
--- NOTE | 2018-10-18 13:48 | Operative Report ---
DATE OF PROCEDURE: 10/18/2018 SURGEON: Taye Dunham MD PROCEDURE: Colonoscopy with polypectomy. INDICATIONS FOR FLEXIBLE SIGMOIDOSCOPY: History of large sigmoid polypoid mass, partially resected on recent colonoscopy. A flex sig is being carried out to remove any residual polypoid tissue. MEDICATIONS: The patient was done under MAC, please see anesthesiologist's note. PROCEDURE IN DETAIL: With the patient in left lateral decubitus position, flexible fiberoptic Olympus colonoscope was inserted into the rectum with ease and advanced to approximately 20 cm from the anal verge. Prep overall was poor with moderate amount of retained fecal material. One polyp was snared from the distal sigmoid colon. Residual polypoid tissue from the previously described polypoid mass in the proximal rectum was removed per snare electrocautery and site was hemoclipped x2. One polyp was removed per snare electrocautery from the distal rectum. The scope was then retroflexed into the distal rectum and small internal hemorrhoids were noted, none of which was actively bleeding. The scope was then straightened out, it was subsequently withdrawn. The patient tolerated the procedure well. IMPRESSION: 1. Poor prep. 2. Approximately 5 mm polyp snared from sigmoid colon. 3. Residual polypoid mass resected per snare electrocautery and site hemoclipped x2. 4. Distal rectal polyp, snared. 5. Internal hemorrhoids, none actively bleeding. PLAN: Follow up histology. The patient might benefit from a followup colonoscopy in one year. Taye Dunham MD [facility] [place]/[facility] /[id number] cc: Joey Farooq MD
== END | disposition home or self-care (01) ==
LOC: OR 07:09
PROVIDERS: ATTEND Internal Medicine Gastroenterology
DX: D12.5 Benign neoplasm of sigmoid colon (principal); D12.8 Benign neoplasm of rectum; K57.92 Diverticulitis of intestine, part unspecified, without perforation or abscess without bleeding; K64.8 Other hemorrhoids; K59.00 Constipation, unspecified; J45.909 Unspecified asthma, uncomplicated; R56.9 Unspecified convulsions; E78.5 Hyperlipidemia, unspecified; I10 Essential (primary) hypertension; M41.9 Scoliosis, unspecified; F20.9 Schizophrenia, unspecified; F31.9 Bipolar disorder, unspecified; F17.210 Nicotine dependence, cigarettes, uncomplicated; Z79.82 Long term (current) use of aspirin; Z86.73 Personal history of transient ischemic attack (TIA), and cerebral infarction without residual deficits; Z80.0 Family history of malignant neoplasm of digestive organs
CPT/HCPCS: 45338; J2704; 45330; 45384; 45385; J3010